=== PATIENT | female | born 1995 | race Caucasian/White ===

== ENCOUNTER → 2017-08-20 17:15 | Day surgery (SDC) | payer BC ==
[~2017-08-20 17:15] MED LIST: Acetaminophen TAB* 325 MG PO PRN; Bupivacaine 0.25% SDV* 30 ML ONE; DiMENhydriNATE IV* 50 MG/ML VIAL IV PUSH PRN; Ketorolac INJ* 30 MG/ML 1 ML VIAL ONE; Midazolam* 1 MG/ML 2 ML VIAL (2 MG) ONE; Midazolam* 1 MG/ML 5 ML VIAL (5 MG) ONE; Ondansetron INJ* 2 MG/ML VIAL ONE; Propofol* 10 MG/ML 20 ML BTL IV PUSH ONE; fentaNYL* 50 MCG/ML 2 ML VIAL (100 MCG VIAL) ONE
--- NOTE | 2017-08-20 18:31 | SURGPN ---
Brief Operative Note - Surgery Procedures: Procedures Pre-OP Diagnoses: Pilonidal abscess Post-op Diagnosis: same Procedure: Incision and drainage of pilonidal abscess Surgeon: Fer Asst: none Anethesia: Spinal, Klufas EBL: minimal IVF: minimal Specimen: abscess fluid for culture Drains: wound packed and left open
[2017-08-20 19:31] VITALS: BP 128/82
--- NOTE | 2017-08-21 14:07 | OP ---
CC: Mitchell Horner MD * DATE OF OPERATION: 08/20/17 - [facility] DATE OF : [birth year] SURGEON: Antonino Monroe MD ANESTHESIOLOGIST: Dr. Barton. ANESTHESIA: Spinal anesthesia. PRE-OP DIAGNOSIS: Pilonidal abscess. POST-OP DIAGNOSIS: Pilonidal abscess. OPERATIVE PROCEDURE: Incision and drainage of pilonidal abscess. BLOOD LOSS: Minimal. FLUIDS: Minimal crystalloid fluid given. SPECIMEN: Fluid for cultures. DESCRIPTION OF PROCEDURE: The patient was identified in the preoperative area. I discussed with her and her mother the procedure going over the risks, benefits, and alternatives as well as complications and they agreed to proceed. The patient was brought to the operating room. Spinal anesthesia was delivered by the anesthesiologist. Please see report for separate details. The patient was then placed in the prone position on the table. Buttocks were taped apart and the pilonidal area was prepped and draped in the standard surgical fashion. A time-out was performed. The patient had received preoperative antibiotics. After injection of 1% lidocaine along the abscess cavity, an approximate 1.5 cm longitudinal incision was made over the most fluctuant portion, just left of the midline along the gluteal cleft. The abscess was under pressure and copious foul smelling pus was encountered. Cultures were taken and the cavity evacuated. Loculations were broken up with finger and a 0.5-inch Iodoform packing placed followed by gauze. The patient tolerated the procedure and was transferred to the PACU in stable condition. [id number]/[facility] #: [id number] MTDD
== END | disposition home or self-care (01) ==
LOC: OR 17:15
PROVIDERS: ATTEND Surgery
DX: L05.01 Pilonidal cyst with abscess (principal)
CPT/HCPCS: 81025; 87070; 87073; 87205; 87640; 87641; J1885; J2250; J2405; J2704; J3010

== ENCOUNTER 2017-12-21 07:00 | Day surgery (SDC) | payer BC ==
--- NOTE | 2017-12-20 14:25 | HP ---
PREOPERATIVE HISTORY AND PHYSICAL: DATE OF ADMISSION/SURGERY: 12/21/17 This patient is scheduled for same-day surgery admission by Dr. Castillo on Sunday , 12/21/17. ATTENDING SURGEON: Dr. Hope Castillo * (dictated by Hannah Almaraz NP). CHIEF COMPLAINT: Pilonidal cyst. HISTORY OF PRESENT ILLNESS: The patient is a 22-year-old female, who is status post incision and drainage of pilonidal abscess in August 2017. She has recovered very nicely and is now ready for a formal excision of the pilonidal cyst. Dr. Castillo has examined the patient and described the nature of the surgical procedure, the rationale for the procedure, the relevant risks and benefits, and today I reviewed the typical postoperative care and recovery. The patient has had a chance to ask questions and stated that she understands the information and is satisfied with the answers given to her questions. She will sign surgical consent on the day of surgery. PAST MEDICAL HISTORY: Generally healthy. No acute or chronic conditions. PAST SURGICAL HISTORY: Right knee surgery, 2007. OB HISTORY: 0. She is up-to-date with pelvic exam and Pap smear and has a Mirena IUD. MEDICATIONS: 1. Mirena IUD. 2. Alprazolam 0.5 mg p.r.n. anxiety. ALLERGIES: BACTRIM and FLAGYL cause severe nausea and vomiting. FAMILY HISTORY: Parents are alive and well. No known anesthesia complications , bleeding tendencies or clotting disorders. SOCIAL HISTORY: She is single and is employed as a customer supply coordinator; she has never been a smoker. She drinks alcohol socially and denies the use of other substances. REVIEW OF SYSTEMS: Constitutional: No fevers, chills, excessive fatigue, or weight loss. Endocrine: No diabetes or thyroid disease. Hematologic: No easy bruising or bleeding, no previous blood transfusions. Respiratory: No dyspnea on exertion. No chronic cough. Cardiovascular: No anginal chest pain or palpitations. Gastrointestinal: No nausea, vomiting, diarrhea, GI bleeding , or constipation. Genitourinary: No dysuria or vaginal discharge. Musculoskeletal: No joint or back pain. Neurologic: No headache, blurred vision. General: No anesthesia complications. No history of deep vein thrombosis or pulmonary embolism. PHYSICAL EXAMINATION GENERAL SURVEY: The patient is a 22-year-old female, well developed, well nourished, in no acute distress. VITAL SIGNS: Height 69 inches, weight 155 pounds, body mass index 22.9. Blood pressure 102/70, pulse 74 and regular, respiratory rate 16, temperature 98.1 tympanic. HEENT: Benign. NECK: Supple. No cervical lymphadenopathy. LUNGS: Breath sounds bilaterally clear and equal. HEART: Regular rate and rhythm. No murmurs or rubs appreciated. BACK: No CVA tenderness. ABDOMEN: Active bowel sounds. Soft, nondistended, nontender throughout. Pilonidal region with a well-healed scar to the left of the gluteal cleft. No erythema. No evidence of infection. PELVIC: Exam deferred. RECTAL: Exam deferred. EXTREMITIES: Warm without edema or skin ulceration. NEUROLOGIC: Alert and oriented x3. Steady gait. SKIN: Warm, dry, intact. IMPRESSION: Pilonidal cyst. PLAN: Same-day surgery admission to Dr. Castillo's service on 12/21/17, for excision of pilonidal cyst. EDWARD ALMARAZ, [employer] [id number]/[facility] #: [id number] ADRIÁN
[~2017-12-21 07:00] MED LIST changes: -Acetaminophen TAB* 325 MG PO PRN; +Buffered Lidocaine 0.9% SYRIN* 5 ML/SYR SYRINGE INTRADERM ONE; +Buffered Lidocaine 0.9% SYRIN* 5 ML/SYR SYRINGE ONE; -DiMENhydriNATE IV* 50 MG/ML VIAL IV PUSH PRN; +Famotidine TAB* 20 MG ONE; +Famotidine TAB* 20 MG PO ONE; -Ketorolac INJ* 30 MG/ML 1 ML VIAL ONE; -Midazolam* 1 MG/ML 2 ML VIAL (2 MG) ONE; -Midazolam* 1 MG/ML 5 ML VIAL (5 MG) ONE; -Ondansetron INJ* 2 MG/ML VIAL ONE; -Propofol* 10 MG/ML 20 ML BTL IV PUSH ONE; +ceFAZolin 2 GM PREMIX (*) 2 GM/50 ML BAG IVPB ONE; -fentaNYL* 50 MCG/ML 2 ML VIAL (100 MCG VIAL) ONE
[2017-12-21] MEDS ORDERED: fentaNYL* 50 MCG/ML 2 ML VIAL (100 MCG VIAL) ONE (08:28)
[2017-12-21] MEDS ORDERED: Midazolam* 1 MG/ML 5 ML VIAL (5 MG) ONE (08:29)
[2017-12-21] MEDS ORDERED: Midazolam* 1 MG/ML 2 ML VIAL (2 MG) ONE (08:36)
[2017-12-21] MEDS ORDERED: Ketorolac INJ* 30 MG/ML 1 ML VIAL ONE (09:11)
[2017-12-21] MEDS ORDERED: Propofol* 10 MG/ML 20 ML BTL IV PUSH ONE (09:11)
[2017-12-21] MEDS ORDERED: DiMENhydriNATE IV* 50 MG/ML VIAL ONE (09:11)
[2017-12-21] MEDS ORDERED: Ondansetron INJ* 2 MG/ML VIAL ONE (09:11)
[2017-12-21] MEDS ORDERED: Lidocaine 2% PF * 5 ML VIAL ONE (09:12)
[2017-12-21] MEDS ORDERED: Chloroprocaine 2%* 20 ML VIAL ONE (09:12)
[2017-12-21] MEDS ORDERED: Naloxone* 0.4 MG/ML 1 ML VIAL IV PRN (09:58)
[2017-12-21] MEDS ORDERED: DiMENhydriNATE IV* 50 MG/ML VIAL IV PUSH PRN (09:58)
[2017-12-21] MEDS ORDERED: Acetaminophen TAB* 325 MG PO PRN (09:58)
[2017-12-21 11:10] VITALS: BP 128/90
--- NOTE | 2017-12-21 12:02 | OP ---
CC: [facility]; Dr. Mitchell Horner OPERATIVE REPORT: DATE OF OPERATION: 12/21/17 DATE OF : [birth year] SURGEON: Hope Castillo MD QUALITY REVIEWER: Ms. Almaraz. PRE-OP DIAGNOSIS: Pilonidal cyst. POST-OP DIAGNOSIS: Pilonidal cyst. OPERATIVE PROCEDURE: Excision of pilonidal cyst. DESCRIPTION OF PROCEDURE: This patient is a 22-year-old female who presented to the office with recurrent pilonidal cyst problem, who elected to have surgery. She was brought to the operating room, placed on the OR table in a prone Jackknife position after having been given spinal anesthesia. The pilonidal area was prepped and draped in the usual sterile fashion. After infiltrating with local anesthetic, an incision was made along the line that had been marked preoperatively, which was in the shape of a sort of a ballooned V to encompass both the abscess and the puncta of the pilonidal tract. The abscess was slightly to the left side and the puncta were in the intergluteal cleft. Once this was done, electrocautery was used to completely excise this tissue, which was handed off and labeled as pilonidal cyst. Hemostasis was assured with electrocautery. The subcutaneous tissue was undermined circumferentially around the wound. This allowed mobility of the point of the V to come down to the limbs of the V and 2-0 Vicryl was used to reapproximate the subcutaneous tissue, 3-0 Vicryl was used to reapproximate subdermal tissue and the skin was closed with a 4-0 Prolene in a running horizontal mattress stitch. The resultant Y shaped incision was closed with one stitch along the leg of the Y and separate stitch along the arms of the Y. A dry sterile dressing was then applied. All sponge and instrument counts were correct. The patient tolerated the procedure well and was transferred to Recovery in the stable condition. [id number]/[facility] #: [id number] [facility]ITAL[facility]nal[facility]
== END 2017-12-21 11:29 | disposition home or self-care (01) ==
LOC: OR 07:00
PROVIDERS: ATTEND Surgery
DX: L05.91 Pilonidal cyst without abscess (principal)
CPT/HCPCS: 81025; 88304; A9270-GY; J0690; J1240; J1885; J2250; J2400; J2405; J2704; J3010

== ENCOUNTER 2021-07-27 14:16 | Inpatient (IN) ==
[2021-07-27] MEDS ORDERED: Buffered Lidocaine 1% SYRIN 1 ml INTRADERM ONE (15:52)
[2021-07-27] MEDS: Betamethasone 6 mg/ml 5 ml VIAL IM SCH (16:28)
[2021-07-27 17:09] LABS: ABS Basophils 0.1 10^3/ul (0-0.2); ABS Eosinophils 0.1 10^3/ul (0-0.6); ABS Lymphocytes 2.9 10^3/ul (1.0-4.8); ABS Neutrophils 8.1 10^3/ul (1.5-7.7); Hematocrit 36 % (35-47); Hemoglobin 12.4 g/dL (12.0-16.0); Mean Corpuscular HGB Conc 34 g/dL (31-36); Mean Corpuscular Hemoglobin 31 pg (27-31); Mean Corpuscular Volume 92 fL (80-97); Mean Platelet Volume 8.3 fL (7.4-10.4); Nucleated Red Blood Cells % 0.1; Platelet Count 342 10^3/uL (150-450); Red Blood Count 3.97 10^6 /uL (3.70-4.87); Red Cell Distribution Width 13 % (10-15); White Blood Count 12.3 10^3/uL (3.5-10.8)
[2021-07-27 17:38] LABS: Urine Benzodiazepine Screen None Detected (None Detect); Urine Cannabinoids Screen None Detected (None Detect); Urine Opiates Screen None Detected (None Detect)
[2021-07-28 15:08] LABS: Urine Collection Time OB 24 hr
[2021-07-28 15:12] LABS: Urine Total Volume OB 6800 mL
[2021-07-28 15:33] LABS: Ur TP Concentration Obstetric 8 mg/dL
[2021-07-28] MEDS: Betamethasone 6 mg/ml 5 ml VIAL IM SCH (16:40)
[2021-07-29] MEDS: Cholecalciferol (VIT D3) 1,000 unit TAB PO SCH ×2 (08:56→09:18)
[2021-07-29] MEDS ORDERED: ceFOXitin 2 GM IVPREMIX 2 GM/50 ML BAG IVPB ONE (12:00)
[2021-07-29] MEDS ORDERED: Sodium Citrate/Citric Acid LIQ 15 ML UDC ONE (13:25)
[2021-07-29 13:51] LABS: Hematocrit 35 % (35-47); Hemoglobin 12.1 g/dL (12.0-16.0); Mean Corpuscular HGB Conc 34 g/dL (31-36); Mean Corpuscular Hemoglobin 31 pg (27-31); Mean Corpuscular Volume 91 fL (80-97); Mean Platelet Volume 8.6 fL (7.4-10.4); Platelet Count 400 10^3/uL (150-450); Red Blood Count 3.88 10^6 /uL (3.70-4.87); Red Cell Distribution Width 13 % (10-15); White Blood Count 16.9 10^3/uL (3.5-10.8)
[2021-07-29] MEDS ORDERED: Magnesium Sulfate OB PREMIX 4 GM/100 ML BAG IV ONE (15:30)
[2021-07-29 15:58] LABS: Albumin 3.2 g/dL (3.2-5.2); Albumin/Globulin Ratio 1.1 (1-3); Calcium 8.3 mg/dL (8.6-10.3); Globulin 2.8 g/dL (2-4); Potassium 3.9 mmol/L (3.5-5.0); Total Bilirubin 0.2 mg/dL (0.2-1.0); eGFR CKD-EPI 110.1 (>60)
[2021-07-29] MEDS ORDERED: Magnesium Sulfate OB PREMIX 40 GM/1,000 ML BAG IVPB SCH (16:00)
[2021-07-29] MEDS ORDERED: Morphine PF AMP (0.5MG/ML) 5 MG/10 ML AMP ONE (16:17)
[2021-07-29] MEDS ORDERED: fentaNYL 100 mcg/2 ml 50 MCG/ML VIAL ONE (16:17)
[2021-07-29] MEDS ORDERED: Dexamethasone IV 4 MG/ML VIAL 1 ml VIAL ONE (16:20)
[2021-07-29] MEDS ORDERED: Ondansetron 4 mg VIAL 2 MG/ML 2 ml VIAL ONE (16:20)
[2021-07-29] MEDS ORDERED: Witch Hazel PAD JAR TOPICAL PRN (16:50)
[2021-07-29] MEDS ORDERED: Lactated Ringers 1000 ml BAG 1,000 ML IV SCH (17:00)
[2021-07-29] MEDS ORDERED: Oxytocin 10 UNITS/ML 1 ML VIAL ONE (17:02)
[2021-07-29] MEDS ORDERED: oxyCODONE/Acetamin 5/325 mg TAB PO PRN (17:16)
[2021-07-29] MEDS ORDERED: Naloxone 0.4 mg VIAL 0.4 mg/ml 1 ml VIAL IV PRN (17:16)
[2021-07-29] MEDS ORDERED: diPHENhydraMINE IV 50 MG/ML 1 ml VIAL (BENADRYL) IV PRN (17:16)
[2021-07-29] MEDS ORDERED: Ondansetron 4 mg VIAL 2 MG/ML 2 ml VIAL IV PRN (17:16)
[2021-07-29] MEDS ORDERED: DiMENhydriNATE IV 50 mg/ml 1 ml VIAL IV PUSH PRN (17:16)
[2021-07-29 17:32] LABS: Urine Appearance Clear; Urine Bilirubin Negative (Negative); Urine Blood Negative (Negative); Urine Color Colorless; Urine Glucose Negative (Negative); Urine Ketones Negative (Negative); Urine Nitrite Negative (Negative); Urine Protein Negative (Negative); Urine Specific Gravity 1.004 (1.002-1.030); Urine Urobilinogen Negative (Negative)
[2021-07-29] MEDS ORDERED: Oxytocin in LR 20 UNITS/1,000 ML BAG IVPB ONE (19:35)
[2021-07-29] MEDS ORDERED: OXYTOCIN IVPB PRN (21:14)
[2021-07-29] MEDS ORDERED: LR IVPB PRN (21:14)
[2021-07-29 22:11] LABS: Hematocrit 31 % (35-47); Hemoglobin 10.2 g/dL (12.0-16.0); Mean Corpuscular HGB Conc 33 g/dL (31-36); Mean Corpuscular Hemoglobin 30 pg (27-31); Mean Corpuscular Volume 92 fL (80-97); Mean Platelet Volume 8.8 fL (7.4-10.4); Platelet Count 413 10^3/uL (150-450); Red Cell Distribution Width 13 % (10-15); White Blood Count 31.9 10^3/uL (3.5-10.8)
[2021-07-29 22:38] LABS: ABS Lymphocytes 2.5 10^3/ul (1.0-4.8); ABS Monocytes 2.6 10^3/ul (0-0.8); ABS Neutrophils 26.7 10^3/ul (1.5-7.7); Lymphocyte % 7.8 %; RBC Morphology Normal (Normal)
[2021-07-30 06:33] LABS: Hematocrit 27 % (35-47); Hemoglobin 9.1 g/dL (12.0-16.0); Mean Corpuscular HGB Conc 34 g/dL (31-36); Mean Corpuscular Hemoglobin 31 pg (27-31); Mean Corpuscular Volume 92 fL (80-97); Mean Platelet Volume 8.2 fL (7.4-10.4); Platelet Count 360 10^3/uL (150-450); Red Blood Count 2.88 10^6 /uL (3.70-4.87); Red Cell Distribution Width 13 % (10-15); White Blood Count 28.2 10^3/uL (3.5-10.8)
[2021-07-30 06:38] LABS: ABS Lymphocytes 3.9 10^3/ul (1.0-4.8); ABS Monocytes 1.6 10^3/ul (0-0.8); ABS Neutrophils 22.7 10^3/ul (1.5-7.7); Eosinophil % 0.1 %; Lymphocyte % 13.7 %
[2021-07-30 06:50] LABS: Albumin 2.8 g/dL (3.2-5.2); Albumin/Globulin Ratio 1.1 (1-3); Calcium 7.1 mg/dL (8.6-10.3); Globulin 2.6 g/dL (2-4); Potassium 4.4 mmol/L (3.5-5.0); Total Bilirubin 0.2 mg/dL (0.2-1.0); Total Protein 5.4 g/dL (6.4-8.9); eGFR CKD-EPI 85.3 (>60)
[2021-07-30 06:51] LABS: Magnesium 5.4 mg/dL (1.9-2.7)
[2021-07-30] MEDS: Cholecalciferol (VIT D3) 1,000 unit TAB PO SCH (09:41)
[2021-07-31 08:42] LABS: ABS Basophils 0.1 10^3/ul (0-0.2); ABS Eosinophils 0.3 10^3/ul (0-0.6); ABS Lymphocytes 4.2 10^3/ul (1.0-4.8); ABS Monocytes 1.3 10^3/ul (0-0.8); ABS Neutrophils 11.3 10^3/ul (1.5-7.7); Hematocrit 27 % (35-47); Hemoglobin 8.9 g/dL (12.0-16.0); Lymphocyte % 24.2 %; Mean Corpuscular HGB Conc 34 g/dL (31-36); Mean Corpuscular Hemoglobin 31 pg (27-31); Mean Corpuscular Volume 92 fL (80-97); Mean Platelet Volume 7.5 fL (7.4-10.4); Platelet Count 378 10^3/uL (150-450); Red Cell Distribution Width 13 % (10-15); White Blood Count 17.2 10^3/uL (3.5-10.8)
[2021-07-31 08:57] LABS: Albumin 2.9 g/dL (3.2-5.2); Calcium 7.9 mg/dL (8.6-10.3); Globulin 2.9 g/dL (2-4); Potassium 4.2 mmol/L (3.5-5.0); Total Bilirubin 0.2 mg/dL (0.2-1.0); Total Protein 5.8 g/dL (6.4-8.9)
[2021-07-31] MEDS: Cholecalciferol (VIT D3) 1,000 unit TAB PO SCH (12:53)
[2021-07-31 14:58] VITALS: BP 128/70
== END 2021-07-31 18:30 | disposition home or self-care (01) | DRG 540 ==
LOC: MCHOBOUT 14:16 → MCHOB 15:12
PROVIDERS: ADMIT Obstetrics & Gynecology; ATTEND Obstetrics & Gynecology